=== PATIENT | female | born 1955 | race Caucasian/White ===

== ENCOUNTER → 2017-07-02 | Outpatient (CLI) | payer BC ==
[2016-10-15 05:27] VITALS: BP 128/75
[~2017-07-02] MED LIST: CALC500T30 PO; FAMO-63 PO; FERR-26 PO; FERR-36 PO; FURO-69 PO; KETO10TA PO; MULT-208 PO; MULT-245 PO; OXYC-323 PO; OXYC10TA45 PO; WARF-78 PO; WARF2TAB7 PO
[2017-07-02 15:36] LABS: BASO % 1 % (0-3); EOS % 2 % (0-3); HEMATOCRIT 36.3 % (36.0-47.0); LYMPH # 1.2 x10^3/uL (1.0-4.8); LYMPH % 18 % (24-48); MEAN CORPUSCULAR HEMOGLOBIN 28 pg (25-35); MEAN CORPUSCULAR HGB CONC 33 g/dL (31-37); MEAN CORPUSCULAR VOLUME 85 fL (79-100); MONO % 9 % (0-9); NEUT % 71 % (31-73); PLATELET COUNT 215 x10^3/uL (140-400); RED BLOOD COUNT 4.26 x10^6/uL (3.50-5.40); RED CELL DISTRIBUTION WIDTH 13.8 % (11.5-14.5); WHITE BLOOD COUNT 6.8 x10^3/uL (4.0-11.0)
[2017-07-02 15:39] LABS: BILIRUBIN,URINE NEGATIVE (NEG); GLUCOSE,URINE NEGATIVE (NEG); NITRITE,URINE NEGATIVE (NEG); PH,URINE 5.5; PROTEIN,URINE NEGATIVE (NEG-TRACE); UROBILINOGEN,URINE 0.2 mg/dL (0.2 mg/dL)
[2017-07-02 15:42] LABS: ALBUMIN 3.3 g/dL (3.4-5.0); CALCIUM 8.4 mg/dL (8.5-10.1); CREATININE 0.9 mg/dL (0.6-1.0); GFR 63.9; POTASSIUM 3.6 mmol/L (3.5-5.1)
[2017-07-02 15:47] LABS: INR 1.1 (0.8-1.1); PROTHROMBIN TIME PATIENT 13.2 SEC (11.7-14.0)
[2017-07-02 15:55] LABS: BACTERIA,URINE 0 /HPF (0-FEW); RBC,URINE 0 /HPF (0-2); SQUAMOUS EPITHELIAL CELL,UR MOD /LPF; WBC,URINE >40 /HPF (0-4)
== END | disposition home or self-care (01) ==
LOC: SURGPAT 14:11
PROVIDERS: ATTEND Thoracic Surgery (Cardiothoracic Vascular Surgery)
DX: M17.11 Unilateral primary osteoarthritis, right knee (principal); Z96.651 Presence of right artificial knee joint; Z79.899 Other long term (current) drug therapy
CPT/HCPCS: 36415; 80048; 81001; 82040; 83036; 85025; 85610; 85651; 85730; 87086; 87641

== ENCOUNTER 2017-07-13 08:46 | Inpatient (IN) | payer BC ==
[~2017-07-13] VITALS: Ht 165.1 cm; Wt 111.6 kg
[2017-07-13] VITALS (9 sets, daily range): BP systolic 120–145; BP diastolic 62–75
[~2017-07-13 08:46] MED LIST changes: -FAMO-63 PO; +HYDROmorphone 2 MG/ML VIAL IV PRN; +IV RINGERS,LACTATED 1000ML 1,000 ML IV SCH; -KETO10TA PO; +LIDOCAINE 1% 1 ML SYRINGE. ID PRN; +MORPHINE SULFATE 5 MG, KETOROLAC TROMETHAMINE 30 MG, ROPIVacaine 0.5% PF 60 ML, EPINEPH... INT ART ONE; +ONDANSETRON PF 4 MG/2 ML VIAL. IV PRN; +PROCHLORPERAZINE 10 MG/2 ML VIAL. IV PRN; +TRANEXAMIC ACID 1,000 MG in IV NORMAL SALINE 50ML 50 ML INJ ONE; -WARF-78 PO; -WARF2TAB7 PO; +fentaNYL PF VIAL 100 MCG/2 ML VIAL IV PRN
[2017-07-13] MEDS ORDERED: WARF-78 PO (09:11)
[2017-07-13] MEDS ORDERED: MIDAZOLAM HCL/PF 2 MG/2 ML VIAL. ONE (09:26)
[2017-07-13] MEDS ORDERED: ONDANSETRON PF 4 MG/2 ML VIAL. ONE (09:26)
[2017-07-13] MEDS ORDERED: LIDOCAINE 2% PF Vial for OR 5 ML VIAL. ONE (09:26)
[2017-07-13] MEDS ORDERED: PROPOFOL 20 ML IV ONE (09:26)
[2017-07-13] MEDS ORDERED: DEXAMETHASONE SOD PHOS 20 MG/5 ML VIAL. ONE (09:26)
[2017-07-13] MEDS ORDERED: DESFLURANE > 120 MINUTES IH ONE ×2 (09:27→12:58)
[2017-07-13] MEDS ORDERED: fentaNYL PF VIAL 100 MCG/2 ML VIAL ONE ×2 (09:27→13:54)
[2017-07-13] MEDS ORDERED: SUCCINYLCHOLINE 200 MG/10 ML VIAL. ONE (09:28)
[2017-07-13] MEDS ORDERED: HYDROcodone/APAP 7.5/325MG 1 TAB TABLET ONE (09:42)
[2017-07-13] MEDS ORDERED: CLINDAMYCIN 600MG PREMIX 50 ML IV ONE (09:42)
[2017-07-13] MEDS ORDERED: HYDROcodone/APAP 7.5/325MG 1 TAB TABLET PO ONE (10:00)
[2017-07-13] MEDS ORDERED: MORPHINE SULFATE 4 MG/ML DISP.SYRIN. IV PRN ×2 (10:45)
[2017-07-13] MEDS ORDERED: ZOLPIDEM 5 MG TABLET. PO PRN (10:45)
[2017-07-13] MEDS ORDERED: CALCIUM CARBONATE 500 MG TAB.CHEW PO PRN (10:45)
[2017-07-13] MEDS ORDERED: DEXTROSE 50% 25 GM / 50ML DISP.SYRIN. IV PRN (10:45)
[2017-07-13] MEDS ORDERED: oxyCODONE/APAP 7.5/325 1 TAB TABLET PO PRN (10:45)
[2017-07-13] MEDS ORDERED: 0.9 % SODIUM CHLORIDE 10 ML DISP.SYRIN. IV PRN (10:45)
[2017-07-13] MEDS ORDERED: fentaNYL PF VIAL 100 MCG/2 ML VIAL IV PRN ×2 (10:45)
[2017-07-13] MEDS ORDERED: diphenhydrAMINE 50 MG/ML VIAL IV PRN (10:45)
[2017-07-13] MEDS ORDERED: MORPHINE SULFATE 10 MG/ML VIAL. IV PRN (10:45)
[2017-07-13] MEDS ORDERED: HYDROcodone/APAP 10/325 1 TAB TABLET PO PRN (10:45)
[2017-07-13] MEDS ORDERED: HYDROcodone/APAP 7.5/325MG 1 TAB TABLET PO PRN (10:45)
[2017-07-13] MEDS ORDERED: traMADol 50 MG TABLET PO PRN ×2 (10:45)
[2017-07-13] MEDS ORDERED: oxyCODONE/APAP 5/325 1 TAB TABLET PO PRN (10:45)
[2017-07-13] MEDS ORDERED: MORPHINE SULFATE 2 MG/ML DISP.SYRIN. IV PRN (10:45)
[2017-07-13] MEDS ORDERED: PROCHLORPERAZINE 10 MG/2 ML VIAL. IV PRN (10:45)
[2017-07-13] MEDS ORDERED: CLINDAMYCIN 600MG PREMIX 50 ML IV SCH (11:00)
[2017-07-13 11:31] LABS: INR 1.1 (0.8-1.1); PROTHROMBIN TIME PATIENT 13.9 SEC (11.7-14.0)
--- NOTE | 2017-07-13 11:47 | HP ---
ADMIT DATE: 07/13/2017 PRINCIPAL DIAGNOSIS: Right knee degenerative joint disease and pain. HISTORY OF PRESENT ILLNESS: The patient is well familiar to me from a left total knee arthroplasty after which she did very well and is now a 61-year-old female having severe limiting right knee pain unresponsive to nonoperative management including injections, activity modification. She wants to proceed with total knee arthroplasty on the right side. PAST MEDICAL HISTORY: Significant for leg swelling, slow heartbeat, abnormal EKG in the past, anemia in the past. PAST SURGICAL HISTORY: Significant for colonoscopy, gastric bypass, skin removal on bilateral arms, total hysterectomy, cholecystectomy, appendectomy, stomach skin removal, hernia repair, adenoidectomy and a previous laparoscopic band procedure. FAMILY HISTORY: Significant for her mother who is alive at 81 years old with arthritis, asthma, bleeding disorders and migraines. Father is at 69 years old from liver disease. She has two sisters that are healthy and aunt of breast cancer. SOCIAL HISTORY: Denies smoking, alcohol or drug use. She is a registered nurse at [employer]. MEDICATIONS: Include Pennsaid, calcium, multivitamin, B12. ALLERGIES: INCLUDE KEFLEX, WHICH GIVES HER HIVES; SULFA GIVES HER HIVES; CIPROFLOXACIN GAVE HER FLUSHING; CORTISONE HIVES. REVIEW OF SYSTEMS: Denies any chest pain, shortness of breath, radiating pain, numbness, tingling or any recent constitutional symptoms. PHYSICAL EXAMINATION: VITAL SIGNS: Per admission sheet. HEENT: Atraumatic, normocephalic. HEART: Regular rate and rhythm. LUNGS: Clear to auscultation bilaterally. ABDOMEN: Benign. EXTREMITIES: Examination of the right knee reveals a slight varus, mild flexion contracture, normal stability. She has a well-healed incision from a left total knee arthroplasty that has excellent motion, stability and tracking. Normal alignment, stability of bilateral hips and ankles. ASSESSMENT: History of total left knee replacement, right knee degenerative arthritis, history of gastric bypass, BMI between 40 and 45. TREATMENT PLAN: I had gone over with her previously the risks, benefits, postoperative course of the procedure including possibility of infection, nerve or blood vessel damage, premature wear or loosening, medical or other anesthetic complications among others. All her questions were answered. Consent was obtained and she agrees to proceed with operative evaluation and treatment, which will have [facility] admission to follow. LAUREN STEEN MD DR: SAMUEL/kris JOB#: [id number] / [id number] ELMO Lo MD
[2017-07-13] MEDS ORDERED: SEVOFLURANE > 120 MINUTES. IH ONE (12:57)
[2017-07-13] MEDS: MORPHINE SULFATE 2 MG/ML DISP.SYRIN. IV PRN ×4 (13:45→14:32)
[2017-07-13] MEDS: fentaNYL PF VIAL 100 MCG/2 ML VIAL IV PRN ×2 (13:50→14:10)
--- NOTE | 2017-07-13 13:50 | PDOC4 ---
Operative Note Operative Note Date of surgery: 07/13/2017 Preoperative diagnosis: Degenerative arthritis right knee Postoperative diagnosis: Same Procedure: Right total knee arthroplasty Surgeon: Jagdish Assist: Rosalba Anesthesia: Gen. endotracheal Estimated blood loss: 300 mL Complications: None Specimens: Cartilage surfaces to pathology Operative indications: The patient is a 61-year-old female well-known to me from previous left total knee arthroplasty that is now having significant pain and limitations of her daily activities because of her right unresponsive to nonoperative treatment I had gone over with her risks benefits postoperative course of total knee arthroplasty as a review she has been through this before but covered possibility of infection nerve or blood vessel damage medical or other anesthetic complications among others. Operative text: Patient was identified procedure verified. Patient was placed in the supine position on the operating table after adequate amounts of general endotracheal anesthesia were administered, a thigh tourniquet was placed and the right lower extremity was prepped and draped in standard sterile fashion. The tourniquet was not inflated for the procedure. After timeout was performed patient procedure identified and verified, a midline incision was made and medial parapatellar approach was carried out patella was everted fat pad was excised bleeding points were controlled by electrocautery and aqua Mantis device. Distal femur was drilled and a standard distal cut carried out measuring was carried out at a size 5 distal femur and anterior posterior chamfer cuts were then made. PCL was retained menisci were excised tibial cut was made using the extramedullary cutting jig and a size 5 tibial component was pinned in place. Trial components were used following ligament balance to ensure excellent positioning stability. Patella was prepared with the patellar reamer and a 32 mm patella was medialized showing excellent tracking without any tilt or instability. Trial components were then removed thorough irrigation carried out normal saline solution bleeding points in the posterior capsule and in the area of the geniculate's and in the remainder the capsule and incision areas were carried out with the aqua Mantis device and the following components were cemented in place with Hull nephew rally high viscosity bone cement a size 5 right journey tibial baseplate a size 5 right journey 2 cruciate retaining Oxinium femoral component with 32 mm round resurfacing patellar component. A 9 mm spacer was placed temporarily with the knee held in extension excess cement was removed and allowed to dry. A journey to cross-link polyethylene 9 mm spacer was locked in place after trial spacer was removed the joint examined for any extra cement and thoroughly irrigated with normal saline solution. Hemovac drain and pain catheter were placed pain catheter mixture was injected throughout the joint capsule and retinaculum was closed with interrupted #2 Ethibond suture and reinforced with a strata fix #1 PDS in a running fashion. Subcutaneous closure accomplished with buried Vicryl suture subcuticular closure with 3-0 Monocryl strata fix. A sergio dressing was then placed patient was extubated transferred to postop holding in stable condition having tolerated procedure well. Please note Marcia mg assist was present for the prepping draping assisted with retraction and skin closure LAUREN STEEN MD Jul 13, 2017 13:50
[2017-07-13] MEDS ORDERED: MORPHINE SULFATE 2 MG/ML DISP.SYRIN. ONE ×2 (14:01→14:16)
--- NOTE | 2017-07-13 14:11 | RAD ---
Portable right knee, 2 views, 07/13/2017: History: Postop evaluation A total knee prosthesis is in place in satisfactory position. A surgical drain overlies the operative site. There is no evidence of a retained surgical instrument, needle or radiopaque sponge.
[2017-07-13] MEDS ORDERED: WARFARIN 7.5 MG TABLET. PO ONE ×2 (16:00→20:45)
[2017-07-13] MEDS: IV DEXTROSE 5 %-0.45 % NACL 1,000 ML IV SCH ×2 (16:30→20:44)
[2017-07-13] MEDS: FERROUS SULFATE 325 MG TABLET. PO SCH (17:00)
[2017-07-13] MEDS: CLINDAMYCIN 600MG PREMIX 50 ML IV SCH ×2 (18:01→23:41)
[2017-07-13] MEDS: KETOROLAC TROMETHAMINE 10 MG TABLET PO SCH ×2 (20:48→23:41)
--- NOTE | 2017-07-14 01:42 | ACF ---
Admission Forms Criteria PAIN MANAGEMENT [facility] Clinical Indications for Admission to Inpatient Care (Place 'X' for any and all applicable criteria): Hospital admission is needed for appropriate care of the patient because of 1 or more of the following are present (1)(2)(3)(4)(5): [ ]I. Severe pain requiring acute inpatient management as indicated by 1 or more of the following (2)(5)(10): [ ]a) Continuous or frequent (eg, every 2 to 4 hours) parenteral analgesics required [A] [ ]b) Necessity (ie, alternative approaches not effective) for analgesic regimen that can only be performed or initiated in inpatient setting [X ]II. Pain causing debilitation to the point of inability to function or be supported at any other level of care [ ]III. Severe side effects from pain medications as indicated by ANY ONE of the following (12)(13)(14)(15): [ ]a) Uncontrollable seizures [ ]b) Cardiac arrhythmias of immediate concern [ ]c) Dehydration that is severe or persistent [ ]d) Vomiting that is severe or persistent [ ]e) Altered mental status that is severe or persistent [ ]f) Obstipation with inadequate GI function to maintain nutrition The original [employer] content created by [employer] has been revised. The portions of the content which have been revised are identified through the use of italic text or in bold, and [facility] has neither reviewed nor approved the modified material. All other unmodified content is copyright [employer]. Please see references footnoted in the original [employer] edition 2016 Admission Criteria Met?: Yes MICHELLE TAMAYO Jul 14, 2017 01:42
[2017-07-14] MEDS: CLINDAMYCIN 600MG PREMIX 50 ML IV SCH (06:00)
[2017-07-14] MEDS ORDERED: MAGNESIUM HYDROXIDE 2,400 MG/30 ML ORAL.SUSP. PO PRN (06:00)
[2017-07-14] MEDS: KETOROLAC TROMETHAMINE 10 MG TABLET PO SCH ×4 (06:00→23:45)
[2017-07-14 06:30] VITALS: BP 137/75
[2017-07-14 06:37] LABS: INR 1.5 (0.8-1.1); PROTHROMBIN TIME PATIENT 16.8 SEC (11.7-14.0)
[2017-07-14] MEDS: IV DEXTROSE 5 %-0.45 % NACL 1,000 ML IV SCH (06:44)
[2017-07-14 07:11] LABS: HEMOGLOBIN 10.7 g/dL (12.0-15.5); RED BLOOD COUNT 3.84 x10^6/uL (3.50-5.40); RED CELL DISTRIBUTION WIDTH 13.8 % (11.5-14.5); WHITE BLOOD COUNT 16.6 x10^3/uL (4.0-11.0)
[2017-07-14] MEDS: FERROUS SULFATE 325 MG TABLET. PO SCH ×2 (08:17→17:05)
[2017-07-14] MEDS: SENNOSIDES/DOCUSATE 8.6/50MG TABLET. PO SCH (08:17)
[2017-07-14] MEDS: MULTIVITAMIN with MINERAL TABLET. PO SCH (08:17)
[2017-07-14] MEDS ORDERED: FERROUS SULFATE 325 MG TABLET. PO SCH (09:00)
[2017-07-14 11:27] VITALS: BP 129/71
--- NOTE | 2017-07-14 15:58 | PDOC ---
PROGRESS NOTES Subjective Subjective Problems overnight: Overall doing very well she reports that she is a light weight in terms of pain medications and would prefer to minimize that if possible she took a tramadol just before physical therapy Objective Vital Signs Vital Signs Date Time Temp Pulse Resp B/P (MAP) Pulse Ox O2 Delivery O2 Flow Rate FiO2 07/14/17 11:27 70 129/71 (90) 07/14/17 10:15 98 Room Air 07/14/17 09:11 20 07/14/17 06:30 97.6 97.6 07/13/17 18:53 2.0 Physical Exam Dressing Hemovac drain and pain catheter are all intact as is her distal neurovascular status she has good early range of motion stability Labs Laboratory Tests Test 07/13/17 09:25 07/14/17 06:00 Prothrombin Time 13.9 SEC (11.7-14.0) 16.8 SEC (11.7-14.0) Prothromb Time International Ratio 1.1 (0.8-1.1) 1.5 (0.8-1.1) White Blood Count 16.6 x10^3/uL (4.0-11.0) Red Blood Count 3.84 x10^6/uL (3.50-5.40) Hemoglobin 10.7 g/dL (12.0-15.5) Hematocrit 33.0 % (36.0-47.0) Mean Corpuscular Volume 86 fL (79-100) Mean Corpuscular Hemoglobin 28 pg (25-35) Mean Corpuscular Hemoglobin Concent 32 g/dL (31-37) Red Cell Distribution Width 13.8 % (11.5-14.5) Platelet Count 241 x10^3/uL (140-400) Laboratory Tests Test 07/14/17 06:00 White Blood Count 16.6 x10^3/uL (4.0-11.0) Red Blood Count 3.84 x10^6/uL (3.50-5.40) Hemoglobin 10.7 g/dL (12.0-15.5) Hematocrit 33.0 % (36.0-47.0) Mean Corpuscular Volume 86 fL (79-100) Mean Corpuscular Hemoglobin 28 pg (25-35) Mean Corpuscular Hemoglobin Concent 32 g/dL (31-37) Red Cell Distribution Width 13.8 % (11.5-14.5) Platelet Count 241 x10^3/uL (140-400) Prothrombin Time 16.8 SEC (11.7-14.0) Prothromb Time International Ratio 1.5 (0.8-1.1) Imaging Postop x-rays show excellent placement of a total knee arthroplasty on the right Assessment Assessment POD# [1], S/P [right total knee arthroplasty] Problems: Plan Plan of Care Continue to work on her most effective pain medicine regimen Coumadin anticoagulation Advance activity with physical therapy Plan home with outpatient physical therapy on discharge LAUREN STEEN MD Jul 14, 2017 15:58
[2017-07-14] MEDS ORDERED: BISACODYL 10 MG SUPP.RECT. PR PRN (16:00)
[2017-07-14] MEDS ORDERED: WARFARIN 3 MG TABLET. PO ONE (16:00)
[2017-07-14 17:07] VITALS: BP 138/77
[2017-07-14] MEDS: ACETAMINOPHEN 325 MG TABLET. PO PRN (21:10)
[2017-07-15] MEDS: KETOROLAC TROMETHAMINE 10 MG TABLET PO SCH ×4 (02:14→23:26)
[2017-07-15 06:30] VITALS: BP 126/71
[2017-07-15 07:07] LABS: HEMATOCRIT 27.7 % (36.0-47.0); HEMOGLOBIN 9.3 g/dL (12.0-15.5)
[2017-07-15 07:44] LABS: INR 2.4 (0.8-1.1)
[2017-07-15] MEDS: ACETAMINOPHEN 325 MG TABLET. PO PRN ×2 (08:36→21:31)
[2017-07-15] MEDS: FERROUS SULFATE 325 MG TABLET. PO SCH ×2 (08:36→17:24)
[2017-07-15] MEDS: MULTIVITAMIN with MINERAL TABLET. PO SCH (08:36)
[2017-07-15] MEDS: SENNOSIDES/DOCUSATE 8.6/50MG TABLET. PO SCH (08:36)
--- NOTE | 2017-07-15 12:12 | PDOC ---
ORTHO PROGRESS NOTES Subjective Patient is doing well. Pain is controlled with the ketorolac. Doing well with therapy and advancing. She admits to a history of a gastric surgery and has not tolerated meloxicam or Celebrex due to GI effects. She is not currently on any GI protection medications. Denies any stomach pain or other symptoms of acid reflux. Denies chest pain or shortness of breath. Denies numbness or tingling Post-op Day: 2 (Total knee arthroplasty) Vitals Vital Signs Date Time Temp Pulse Resp B/P (MAP) Pulse Ox O2 Delivery O2 Flow Rate FiO2 07/15/17 08:02 Room Air 07/15/17 06:30 99.3 91 20 126/71 (89) 96 99.3 Labs Laboratory Tests Test 07/14/17 06:00 07/15/17 06:40 White Blood Count 16.6 x10^3/uL (4.0-11.0) Red Blood Count 3.84 x10^6/uL (3.50-5.40) Hemoglobin 10.7 g/dL (12.0-15.5) 9.3 g/dL (12.0-15.5) Hematocrit 33.0 % (36.0-47.0) 27.7 % (36.0-47.0) Mean Corpuscular Volume 86 fL (79-100) Mean Corpuscular Hemoglobin 28 pg (25-35) Mean Corpuscular Hemoglobin Concent 32 g/dL (31-37) 34 g/dL (31-37) Red Cell Distribution Width 13.8 % (11.5-14.5) Platelet Count 241 x10^3/uL (140-400) Prothrombin Time 16.8 SEC (11.7-14.0) 25.0 SEC (11.7-14.0) Prothromb Time International Ratio 1.5 (0.8-1.1) 2.4 (0.8-1.1) Laboratory Tests Test 07/15/17 06:40 Hemoglobin 9.3 g/dL (12.0-15.5) Hematocrit 27.7 % (36.0-47.0) Mean Corpuscular Hemoglobin Concent 34 g/dL (31-37) Prothrombin Time 25.0 SEC (11.7-14.0) Prothromb Time International Ratio 2.4 (0.8-1.1) Notes Patient is awake and alert sitting up in bed. Breathing unlabored, no acute distress. Incision covered with dressing, no signs or symptoms of infection. Neurovascular intact right lower extremity. Problems: (1) Degenerative arthritis of right knee Assessment and Plan Continue PT OT, weightbearing as tolerated Anticoagulation per pharmacy Pain controlled. I would like to put her on an H2 emeka because of the ketorolac. Monitor for GI upset Anticipate discharge home tomorrow Problem Qualifiers (1) Degenerative arthritis of right knee: Osteoarthritis type: primary Qualified Codes: M17.11 - Unilateral primary osteoarthritis, right knee GABRIELA POTTER [employer] Jul 15, 2017 12:12
[2017-07-15] MEDS: FAMOTIDINE 20 MG TABLET. PO SCH ×2 (15:56→21:00)
[2017-07-15] MEDS ORDERED: WARFARIN 1 MG TABLET. PO ONE (16:00)
[2017-07-15 19:00] VITALS: BP 102/55
[2017-07-16 06:00] VITALS: BP 123/66
[2017-07-16] MEDS: KETOROLAC TROMETHAMINE 10 MG TABLET PO SCH ×2 (06:33→12:25)
[2017-07-16 06:41] LABS: HEMATOCRIT 27.1 % (36.0-47.0); HEMOGLOBIN 9.3 g/dL (12.0-15.5)
[2017-07-16 07:22] LABS: PROTHROMBIN TIME PATIENT 21.1 SEC (11.7-14.0)
[2017-07-16] MEDS: FERROUS SULFATE 325 MG TABLET. PO SCH (08:16)
[2017-07-16] MEDS: MULTIVITAMIN with MINERAL TABLET. PO SCH (08:16)
[2017-07-16] MEDS: SENNOSIDES/DOCUSATE 8.6/50MG TABLET. PO SCH (08:17)
[2017-07-16] MEDS: FAMOTIDINE 20 MG TABLET. PO SCH (08:17)
[2017-07-16] MEDS ORDERED: FAMO-63 PO (10:31)
[2017-07-16] MEDS ORDERED: KETO10TA PO (10:31)
[2017-07-16] MEDS ORDERED: WARF2TAB7 PO (11:02)
[2017-07-16] MEDS ORDERED: WARFARIN 2 MG TABLET. PO ONE (13:00)
[2017-07-16 14:25] VITALS: BP 118/64
--- NOTE | 2017-07-17 00:02 | PATHOLOGY ---
PATHOLOGY REPORT * * * * * * * * FINAL DIAGNOSIS: "Right knee tissue", removal: - Degenerative osteoarthritis. (SKM/db; 07/16/2017) REPORT ELECTRONICALLY SIGNED BY: Josephine Membreno M.D. DATE/TIME: 07/16/2017 15:24 * * * * * * * * GROSS PATHOLOGY: The specimen is received in formalin, labeled "Kaylyn Flynn and right knee tissue", are multiple irregular fragment off bone, soft tissue measuring 12 x 9 x 3.0 cm in aggregate. Tibia plateau, patella and meniscus are identified with the several fragments containing eburnation and erosion. [facility] section in A1 after decalcification. (SWS; 07/13/2017) INITIAL CPT CODE(S): A; 11132, 06585 Professional services performed [place] [facility] [place] [address] Technical services performed by [facility] at [address] [place] [address]. SPECIMEN(S) RECEIVED: A.Right knee tissue CLINICAL HISTORY: Right knee OA PATIENT: KAYLYN FLYNN /AGE: 1210/26/1955 (Age: 61) PATIENT #: [id number] ALT CASE #: SPECIMEN COLLECTION DATE: 07/13/2017 SPECIMEN RECEIVED DATE: 07/13/2017 [facility] - [address] [place] [address] - PHONE: [phone] * * * END OF REPORT * * *
== END 2017-07-16 14:45 | disposition home or self-care (01) | DRG 470 ==
LOC: OPSVCIP 08:46 → 4 SOUTHEST 14:45
PROVIDERS: ADMIT Orthopaedic Surgery; ATTEND Orthopaedic Surgery
PROC: 0SRC0J9 Replacement of Right Knee Joint with Synthetic Substitute, Cemented, Open Approach (ICD-10-PCS; principal; 2017-07-13 10:35)
DX: M17.11 Unilateral primary osteoarthritis, right knee (principal); Z96.652 Presence of left artificial knee joint; Z88.1 Allergy status to other antibiotic agents; Z88.8 Allergy status to other drugs, medicaments and biological substances; Z80.3 Family history of malignant neoplasm of breast; Z82.5 Family history of asthma and other chronic lower respiratory diseases; Z98.84 Bariatric surgery status; Z88.6 Allergy status to analgesic agent; Z88.2 Allergy status to sulfonamides; Z90.49 Acquired absence of other specified parts of digestive tract; Z90.710 Acquired absence of both cervix and uterus; Z82.61 Family history of arthritis
CPT/HCPCS: 36415; 73560; 85014; 85018; 85027; 85610; 86850; 86900; 86901; 88305; 88311; J0171; J0330; J0780; J1100; J1885; J2250; J2270; J2405; J2704; J2795; J3010; J3490; J7030; J7120; 97116; 97150; 97530; 97535; C1769; J2001

== ENCOUNTER → 2017-08-20 | Outpatient (CLI) | payer BC ==
[~2017-08-20] MED LIST changes: +BUPIVACAINE MPF 0.5% 10 ML VIAL for KCIC. IJ ONE; +FAMO-63 PO; -HYDROmorphone 2 MG/ML VIAL IV PRN; +IOHEXOL 300 MG/ML 50 ML VIAL. INT ART ONE; -IV RINGERS,LACTATED 1000ML 1,000 ML IV SCH; +KETO10TA PO; -LIDOCAINE 1% 1 ML SYRINGE. ID PRN; +LIDOCAINE 1% Multi-Dose 20 ML VIAL. ID ONE; -MORPHINE SULFATE 5 MG, KETOROLAC TROMETHAMINE 30 MG, ROPIVacaine 0.5% PF 60 ML, EPINEPH... INT ART ONE; -ONDANSETRON PF 4 MG/2 ML VIAL. IV PRN; -PROCHLORPERAZINE 10 MG/2 ML VIAL. IV PRN; -TRANEXAMIC ACID 1,000 MG in IV NORMAL SALINE 50ML 50 ML INJ ONE; +WARF-78 PO; +WARF2TAB7 PO; -fentaNYL PF VIAL 100 MCG/2 ML VIAL IV PRN; +methylPREDNISolone ACETATE 40 MG/ML VIAL. INT ART ONE
--- NOTE | 2017-08-20 14:06 | KCIC ---
Therapeutic right hip injection using fluoroscopic guidance: 08/20/2017 Indication: Hip pain. hip pain.. Technique: The procedure was explained to the patient as were potential risks. All questions were answered. Informed written consent was obtained. The right hip was prepped and draped in the usual sterile manner. Following administration of local anesthetic, a 22-gauge spinal needle was advanced into the hip joint without difficulty, with care taken to avoid the vascular structures. Stylet was removed and following negative aspiration, a mixture of 5 cc Omnipaque-300, 2 cc (80 mg) Depo-Medrol and 8 cc 0.5% bupivacaine were injected without difficulty. Fluoroscopy demonstrates uniform and satisfactory distribution of the injection through the hip. The needle was removed. There was good hemostasis at the injection site. The patient left in stable condition without immediate complication. The patient was given postprocedural instructions, instructed to contact us or the emergency room if there are any complications. 0:27 fluoroscopic time, one image. Image shows needle tip at the lateral femoral head/neck junction. Contrast material fills the joint space. Impression: Successful right hip therapeutic injection. Electronically signed by: Jacinto Sethi MD (08/20/2017 2:02 PM) [id number]
== END | disposition home or self-care (01) ==
LOC: KCIC 12:08
PROVIDERS: ATTEND Nurse Practitioner Gerontology
DX: M25.551 Pain in right hip (principal); G89.29 Other chronic pain
CPT/HCPCS: 20610; 77002; J1030; Q9967

== ENCOUNTER → 2017-08-26 | Outpatient (CLI) | payer BC ==
[~2017-08-26] MED LIST changes: -BUPIVACAINE MPF 0.5% 10 ML VIAL for KCIC. IJ ONE; -IOHEXOL 300 MG/ML 50 ML VIAL. INT ART ONE; -LIDOCAINE 1% Multi-Dose 20 ML VIAL. ID ONE; -methylPREDNISolone ACETATE 40 MG/ML VIAL. INT ART ONE
--- NOTE | 2017-08-26 15:40 | KCIC ---
MR of the right hip Indication: Right hip pain chronically, for months. Technique: Standard multiplanar sequences are obtained. Findings: Bones: No bone lesion, acute fracture or acute bone marrow edema. No femoral head osteonecrosis. Effusion: No significant effusion Cartilage: No evidence of acute cartilage defect or advanced DJD. Labrum: No evidence of labral tear or para labral cyst Gluteus minimus and medius tendon: Intact Hamstring tendon: Intact Iliopsoas tendon: Intact Rectus femoris tendon attachment:Intact Soft tissue:No significant acute findings. Diagnostically limited coronal inversion recovery survey sequence obtained with a large thyhd-zu-vvxy demonstrates no acute pathology at the contralateral hip or visualized sacroiliac joints. Impression: No significant abnormality identified. Electronically signed by: Jacinto Knox MD (08/26/2017 3:37 PM) [facility]
== END | disposition home or self-care (01) ==
LOC: KCIC MRI 10:57
PROVIDERS: ATTEND Nurse Practitioner Gerontology
DX: M25.551 Pain in right hip (principal)
CPT/HCPCS: 73721

== ENCOUNTER → 2017-09-21 | Outpatient (CLI) | payer BC ==
[~2017-09-21] MED LIST changes: +GABA-586 PO
--- NOTE | 2017-09-21 14:46 | KCIC ---
MRI Lumbar Spine without contrast History: Acute lumbar radiculopathy, right radiculopathy Technique: Multiplanar, multi sequential noncontrast MR imaging was performed of the lumbar spine. Contrast: None Comparison: None Findings: There is mild motion. Lumbar vertebral body stature is maintained. There is mild grade 1 anterior spondylolisthesis at L3-4. Conus terminates at L1-2. There is mild degenerative disc disease L3-4, mild disc desiccation at the levels of lumbar spine. There is no significant marrow edema. Small 1.2 cm T2 hyperintense lesion of the visualized right kidney is statistically most likely a cyst. L1-L2: Spinal canal and neural foramina are adequate. L2-L3: Spinal canal and neural foramina are adequate. There is minimal facet degenerative change. L3-4: There is moderate facet hypertrophic change and mild to moderate buckling of the ligamentum flavum. There is mild partial uncovering of the posterior aspect of the disc due to spondylolisthesis. There is overall mild spinal stenosis with lateral recess stenosis bilaterally. There is mild left and cumz-za-mzrxgyvm right neural foramina compromise. L4-L5: There is aebc-mg-pmzhrypm facet degenerative change and minimal buckling of the ligamentum flavum. Spinal canal is adequate. There is mild left and moderate right neural foramina compromise. L5-S1: There is mild facet hypertrophic change. Spinal canal and neural foramina are adequate. Impression: 1. There is mild spinal stenosis with lateral recess stenosis bilaterally at L3-4. 2. There is pseh-zc-ylloeiqj neural foramina compromise as stated greatest on the right at L4-5 and to a somewhat lesser degree on the right at L3-4. 3. There is grade 1 anterior spondylolisthesis at L3-4 at which there is facet degenerative change. There is mild degenerative disc disease at L3-4. Electronically signed by: Hamzah Rogers MD (09/21/2017 2:43 PM) [id number]
== END | disposition home or self-care (01) ==
LOC: KCIC MRI 13:28
PROVIDERS: ATTEND Nurse Practitioner Gerontology
DX: M48.061 Spinal stenosis, lumbar region without neurogenic claudication (principal); M51.16 Intervertebral disc disorders with radiculopathy, lumbar region
CPT/HCPCS: 72148

== ENCOUNTER → 2017-10-15 | Outpatient (CLI) | payer BC ==
--- NOTE | 2017-10-15 22:36 | PAIN ---
DATE OF SERVICE: 10/15/2017 INITIAL CONSULTATION FOR PAIN CLINIC CHIEF COMPLAINT: Low back and right greater than left lower extremity pain. HISTORY OF PRESENT ILLNESS: This is a 61-year-old female who presents with a history of pain for about 5 months, increasing gradually over time, not the results of any specific injury or accident, but significant pain, increasing with time with walking, standing, change in positions, also noticeable with lying down and it awakens her several times during the night. The patient reports it does not affect her bowel or bladder control, does affect her ability to walk, using a cane at times in her left hand, but she does not have one with her today. The patient reports that the pain has been increasing. It is a constant pain, sharp, stabbing, throbbing, shooting with some aching qualities across the low back as well, mostly in the posterior gluteus on the right greater than left, but also on the left gluteus and thigh, right thigh posteriorly, posterior, lateral, anterior thigh as well as posterior calf into the level of the foot and heel on the right side. The patient reports her disability rating from 0-10, 10 being the worst; a 7 with family, home responsibilities, recreation and social activity and self care; 10 with occupation; 9 with life support activities. The patient did have MRI scan of the lumbar spine dated 09/21/2017 showing mild spinal stenosis with lateral recess stenosis bilaterally at L3-L4, mild to moderate neural foraminal compromise, greatest on the right at L4-L5 and to somewhat lesser degree on the right at L3-L4, grade 1 anterior spondylolisthesis at L3-L4 with facet degenerative change and mild degenerative disk disease at L3-L4 as well. The patient has had physical therapy in July and September of this year, also doing exercises from therapy on her own, has not had any other specific treatments for the low back and radicular pain. She has been taking gabapentin, which has not been helping and taking 300 mg at bedtime. The patient reports no loss of motor function, but significant fatigability with walking, standing, especially with any stair climbing or being on her feet more than about 15-20 minutes in the right leg compared to the left. PAST MEDICAL HISTORY: Significant for arthritis, quit smoking years ago, history of bradycardia, gastric bypass. OTHER SURGERIES: Include right total knee replacement in 07/2017, left knee replaced in 2016, cholecystectomy, abdominal hernia repair, lap band, total abdominal hysterectomy, bilateral carpal tunnel repairs, left cubital tunnel. CURRENT MEDICATIONS: Include calcium, multivitamins and gabapentin 300 mg. ALLERGIES: THE PATIENT IS ALLERGIC TO SULFA, KEFLEX, CELEBREX, CIPRO AND CORTISONE WHICH CAUSES JITTERINESS. FAMILY HISTORY: Significant for diabetes, hypertension, fibromyalgia, food allergies as well as cancers. SOCIAL HISTORY: The patient does not smoke, quit many years ago. Does not drink alcohol. She is , lives with her spouse in [place], [place], and is a registered nurse. REVIEW OF SYSTEMS: Positive for those items mentioned in the history of present illness. All systems reviewed and otherwise negative. It is complete, full and well documented on the patient's chart. PHYSICAL EXAMINATION: VITAL SIGNS: Today, the patient's blood pressure is 134/73, pulse 66, respirations 16, temperature is 98.1 degrees Fahrenheit, height is 5 feet 5 inches, weight is 236 pounds. GENERAL: The patient is awake, alert, oriented, appropriate, very pleasant demeanor. HEENT: Shows normocephalic, atraumatic. Extraocular movements are intact, symmetrical. Oral cavity shows mucous membranes moist and pink. Dentition is intact. NECK: Shows anterior throat supple without palpable lymphadenopathy noted. Swallow reflex is symmetrical. CHEST: Shows normal with inspection. Breath sounds are clear to auscultation bilaterally. HEART: Shows S1, S2 clear. No murmurs auscultated. ABDOMEN: Soft, nontender, nondistended. No palpable organomegaly is noted. No rebound or guarding demonstrated. MUSCULOSKELETAL: Neck shows spine grossly in the midline, normal appearing cervical lordotic curvature, thoracic kyphotic curvature and lumbar lordotic curvature. Lumbar paraspinous muscle shows symmetrical on inspection, palpation shows some moderate tenderness with palpation bilaterally only diffusely without significant radiation. No tenderness over the sacrum or sacroiliac regions. No bruises, lesions, rashes or scars are noted on the skin. Lower extremities show deep tendon reflexes at 2+ in the patellar, 1+ tendo-calcaneus tendons and are equal. Motor exam is approximately 4 on a scale of 5 on the right, 5/5 on the left with dorsiflexion, extension, quads and hamstring flexion 5/5 and equal bilaterally. Peripheral pulses are 1+ posterior tibial and dorsalis pedis pulses. No peripheral edema is noted. No clubbing, no cyanosis. Lower extremities are warm and dry to touch, equal in color and appearance. Straight leg raise noted to be positive on the right at approximately 35-40 degrees and left side is negative, decreased with knee flexion on the right, however. Gaenslen's and Callum's maneuvers are grossly negative bilaterally as well. The patient is able to stand. She has difficulty trying to stand on her toes. With all of her weight on her right foot, she loses balance quickly. Again, walking with a slight favoring gait favoring the right lower extremity, not using any assistive devices, although she reports she does bring a cane with her when she is walking further distances, places. IMPRESSION: 1. This is a 61-year-old female with approximate 5-month history of increasing pain, low back, right lower extremity greater than the left in a radicular fashion in a L4-L5 dermatomal distribution and L3-L4 dermatomal distribution as well. 2. Arthritis. 3. MRI scan of the lumbar spine as noted. PLAN: Options were discussed including conservative medical management, continued physical therapy, interventional techniques. She would like to pursue interventional techniques. We discussed a lumbar epidural steroid injection using description as well as anatomical models to describe the procedure. The patient would like to proceed. We will wait for preauthorization from the patient's insurance provider and proceed with lumbar epidural steroid injection at that time. RUFINA DELEON MD DR: ZENA/kris JOB#: [id number] / [id number]
== END | disposition home or self-care (01) ==
LOC: PNCL 09:04
PROVIDERS: ATTEND Anesthesiology
DX: M48.061 Spinal stenosis, lumbar region without neurogenic claudication (principal); M54.16 Radiculopathy, lumbar region; Z90.49 Acquired absence of other specified parts of digestive tract; Z83.3 Family history of diabetes mellitus
CPT/HCPCS: 99214

== ENCOUNTER → 2017-10-26 | Outpatient (CLI) | payer BC ==
[~2017-10-26] MED LIST changes: +IOHEXOL 180 MG/ML 10 ML VIAL. ONE; +methylPREDNISolone ACETATE 40 MG/ML VIAL. ONE; +methylPREDNISolone ACETATE 80 MG/ML VIAL. ONE
--- NOTE | 2017-10-26 19:23 | PAIN ---
DATE OF SERVICE: 10/26/2017 DIAGNOSES: Lumbar radiculopathy with lumbar degenerative disk disease and lumbar spinal stenosis. HISTORY OF PRESENT ILLNESS: The patient is a 62-year-old female who returns for followup status post initial evaluation and preauthorization for lumbar epidural steroid injection. The patient returns now with still significant pain in low back, worse on the right than the left, radiating from the lumbar distribution of the posterior gluteus, posterolateral thigh, lateral anterior thigh, medial thigh on the right and medial lower leg on the right, also posterior thigh and calf on the left side. The patient reports it is burning, cramping, stabbing, sharp shooting pain, it is constant and is becoming more severe. The patient rates pain a 10 on a scale of 10 at its worst, 8 on average and a 4 at its least, is a 5 today. The patient reports no new motor or sensory deficits, but her pain has been getting progressively worse with time, worse with standing, walking, changing positions, better with lying down, but is still waking her from sleep at night. The patient reports otherwise no new findings. PHYSICAL EXAMINATION: VITAL SIGNS: The patient's blood pressure 138/78, pulse 66, respirations 18, temperature 98.0 degrees Fahrenheit, height is 5 feet 5 inches, weight is 243 pounds. GENERAL: The patient is awake, alert, oriented, appropriate, very pleasant demeanor. HEENT: Head shows normocephalic, atraumatic. Extraocular movements are intact, symmetrical. Oral cavity: Mucous membranes moist and pink. Dentition is intact. NECK: Shows anterior throat supple without palpable lymphadenopathy noted. Swallow reflex is symmetrical. CHEST: Shows normal with inspection. Breath sounds are clear to auscultation bilaterally. HEART: S1, S2 clear. No murmurs auscultated. ABDOMEN: Obese, soft, nontender, nondistended. No palpable organomegaly is noted. No rebound or guarding demonstrated. BACK: Shows spine grossly in the midline. Lumbar paraspinous musculature shows symmetrical with inspection on palpation shows some moderate tenderness diffusely, more in the middle and lower distribution, but only diffusely without radiation. The patient shows full rotational motion of lumbar spine, both laterally as well as extension and flexion. EXTREMITIES: Lower extremities show deep tendon reflexes 1+ in the patellar and tendo calcaneus tendons are equal. Motor exam is strong with 5/5 left dorsiflexion, extension and 4/5 on the right. Peripheral pulses are 1+ posterior tibial and dorsalis pedis pulses. No peripheral edema is noted bilaterally. Options were discussed with the patient. The patient's old chart was reviewed as her current medication regimen and updated. Current review of systems is updated today as well and we will proceed with a lumbar epidural steroid injection today with fluoroscopic guidance. Risks were again discussed including, but not limited to bleeding, infection, possibility of epidural hematoma, subsequent neurologic compromise, dural puncture, headaches, spinal cord and/or nerve damage, side effects of steroid medication and poor results regarding pain control. The patient understands and wished to proceed. The patient will return to clinic in approximately 2 weeks for followup. She was counseled for return appointment, activity level and side effects to be aware of. DIAGNOSIS: Lumbar radiculopathy with lumbar degenerative disk disease and lumbar spinal stenosis. PROCEDURE: Lumbar epidural steroid injection, translaminar approach at the L4-L5 level using C-arm fluoroscopic guidance under sterile prep and drape using local anesthetic. MEDICATION INJECTED: A total of 120 mg Depo-Medrol plus 10 mL preservative-free normal saline and 2 mL of Isovue for contrast. CONDITION AT DISCHARGE: Stable. The patient tolerated procedure well, had no complications. RUFINA DELEON MD DR: ZENA/kris JOB#: [id number] / [id number]
== END ==
LOC: PNCL 12:57
PROVIDERS: ATTEND Anesthesiology
DX: M51.16 Intervertebral disc disorders with radiculopathy, lumbar region (principal); M48.061 Spinal stenosis, lumbar region without neurogenic claudication; M17.0 Bilateral primary osteoarthritis of knee; F17.200 Nicotine dependence, unspecified, uncomplicated; Z83.3 Family history of diabetes mellitus; Z98.890 Other specified postprocedural states; Z90.49 Acquired absence of other specified parts of digestive tract; Z98.84 Bariatric surgery status; Z98.51 Tubal ligation status; Z96.652 Presence of left artificial knee joint; Z90.710 Acquired absence of both cervix and uterus; Z90.721 Acquired absence of ovaries, unilateral; Z82.49 Family history of ischemic heart disease and other diseases of the circulatory system
CPT/HCPCS: 62323; J1030; J1040

== ENCOUNTER → 2017-11-12 | Outpatient (CLI) | payer BC | END | disposition home or self-care (01) | LOC: PNCL 10:13 | DX: M51.16 Intervertebral disc disorders with radiculopathy, lumbar region (principal); M48.061 Spinal stenosis, lumbar region without neurogenic claudication | CPT/HCPCS: 99212 ==

== ENCOUNTER → 2017-12-02 | Outpatient (CLI) | payer BC ==
[~2017-12-02] MED LIST changes: -CALC500T30 PO; -FAMO-63 PO; -FERR-26 PO; -FERR-36 PO; -FURO-69 PO; -GABA-586 PO; +IOHEXOL 180 MG/ML 10 ML VIAL.; -IOHEXOL 180 MG/ML 10 ML VIAL. ONE; -KETO10TA PO; -MULT-208 PO; -MULT-245 PO; -OXYC-323 PO; -OXYC10TA45 PO; -WARF-78 PO; -WARF2TAB7 PO; +methylPREDNISolone ACETATE 40 MG/ML VIAL.; -methylPREDNISolone ACETATE 40 MG/ML VIAL. ONE; +methylPREDNISolone ACETATE 80 MG/ML VIAL.; -methylPREDNISolone ACETATE 80 MG/ML VIAL. ONE
== END | disposition home or self-care (01) ==
LOC: PNCL 12:57
DX: M51.16 Intervertebral disc disorders with radiculopathy, lumbar region (principal); M48.061 Spinal stenosis, lumbar region without neurogenic claudication; Z88.6 Allergy status to analgesic agent; Z88.2 Allergy status to sulfonamides; Z92.241 Personal history of systemic steroid therapy; Z98.84 Bariatric surgery status; Z90.49 Acquired absence of other specified parts of digestive tract; E66.9 Obesity, unspecified; Z98.51 Tubal ligation status; Z90.710 Acquired absence of both cervix and uterus; Z90.721 Acquired absence of ovaries, unilateral; M19.90 Unspecified osteoarthritis, unspecified site
CPT/HCPCS: 62323; J1030; J1040